=== PATIENT | male | born 1985 | race African-American/Black ===

== ENCOUNTER 2020-02-26 10:13 | Emergency (ER) | payer MEDICAID, SELFPAY ==
[2020-02-26 10:20] VITALS: BP 120/69; PULSE 71; RESP 18; TEMP 36.9; O2SAT 100
--- NOTE | 2020-02-26 10:45 | ED.GENADULT ---
HPI - General Adult General Chief complaint: Unspecified Stated complaint: lip bumps Time Seen by Provider: 02/26/20 10:22 Source: patient Mode of arrival: ambulatory Limitations: no limitations History of Present Illness HPI narrative: This is a 34 year old male that presents to the ER for rash on his lips present for the last 2 days. Reports he has been using Aquaphor to keep his lips moisturized. Is unsure if this is possibly causing a reaction. Reports the rash is not painful or itchy. Denies fever. Related Data Home Medications Medication Instructions Recorded Confirmed No Home Medications 02/26/20 02/26/20 Allergies Allergy/AdvReac Type Severity Reaction Status Date / Time No Known Allergies Allergy Verified 02/26/20 10:22 Review of Systems Review of Systems: Narrative: CONSTITUTIONAL: Denies fever SKIN: Reports rash. Denies itching. All systems reviewed & are unremarkable except as noted in HPI and below PMFSH Past Medical History Medical History (Updated 02/26/20 @ 10:49 by Liudmila Mata PA-C) No active medical problems Social History Social History (Updated 02/26/20 @ 10:46 by Liudmila Mata PA-C) Smoking status: Never smoker Gender identity (if verbalized by the patient): Male Exam Narrative: Exam Narrative: GENERAL: Well-appearing, well-nourished, and in no acute distress. HEAD: Normocephalic, atraumatic. EYES: EOMI. EXTREMITIES: Normal range of motion. No edema. SKIN: Warm, dry. Tiny white papules present on the edge of the upper and lower lip NEURO: No focal deficits. Alert and oriented x3. PSYCH: Normal mood and affect Course Vital Signs Vital signs: Vital Signs Temperature 98.4 F 02/26/20 10:20 Pulse Rate 71 02/26/20 10:20 Respiratory Rate 18 02/26/20 10:20 Blood Pressure 120/69 02/26/20 10:20 Pulse Oximetry 100 02/26/20 10:20 Temperature 98.4 F 02/26/20 10:20 Pulse Rate 71 02/26/20 10:20 Respiratory Rate 18 02/26/20 10:20 Blood Pressure 120/69 02/26/20 10:20 Pulse Oximetry 100 02/26/20 10:20 Medical Decision Making MDM Narrative Medical decision making narrative: Patient presents emergency department for rash noted to his lips for the last 2 days. Rash is very mild in nature. It is not painful or itchy. Does report recently using Aquaphor. Unsure if this is may be causing a very mild contact dermatitis. Advised stopping this medication and starting just plain Vaseline. Patient was encouraged to follow-up with a farm equipment mechanic if his rash persists Vital Signs Vital Signs: Vital Signs Temperature 98.4 F 02/26/20 10:20 Pulse Rate 71 02/26/20 10:20 Respiratory Rate 18 02/26/20 10:20 Blood Pressure 120/69 02/26/20 10:20 Pulse Oximetry 100 02/26/20 10:20 Temperature 98.4 F 02/26/20 10:20 Pulse Rate 71 02/26/20 10:20 Respiratory Rate 18 02/26/20 10:20 Blood Pressure 120/69 02/26/20 10:20 Pulse Oximetry 100 02/26/20 10:20 Critical Care Time Critical Care Time Critical Care Time: No Discharge Plan Discharge Clinical Impression: Rash and nonspecific skin eruption Patient Disposition: Home, Self-Care Condition: Stable Instructions: Acute Rash (ED) Additional Instructions: Return to the emergency department if you experience fever, abnormal drainage from your wounds, worsening of rash, or any other symptoms that are concerning to you Stop Aquaphor. Start using just plain Vaseline on your lips Follow-up with a farm equipment mechanic if your rash persists. Dr. Cassie Patino, [facility] Prescriptions: No Action No Home Medications RF: 0 Follow-up/Referrals: PHYSICIAN,DISTRIBUTION WAREHOUSE MANAGER [Primary Care Provider] -
[2020-02-26 11:05] VITALS: PULSE 62; RESP 15
== END 2020-02-26 11:05 | disposition home or self-care (01) ==
PROVIDERS: Emergency Provider Emergency Medicine
DX: R21 Rash and other nonspecific skin eruption (principal)
CPT/HCPCS: 99281

== ENCOUNTER 2024-12-03 07:32 | Emergency (ER) | payer OTHER, SELFPAY ==
[2024-12-03 07:37] VITALS: BP 119/84; PULSE 106; RESP 13; TEMP 36.9; O2SAT 97
--- NOTE | 2024-12-03 07:40 | ED_ITS ---
HPI - Skin/Abscess/Foreign Bdy General Chief complaint: Skin/Abscess/Foreign Body Stated complaint: ?spider bite Time Seen by Provider: 12/03/24 07:36 History of Present Illness HPI narrative: About 6 days ago patient noticed a painful bump on his right abdomen, had gotten swollen and painful and itchy, then a few days ago, noticed painful swollen bumps on the right groin, than left. No drainage, no penile discharge or new partners or concern for STDs. Related Data Allergies Allergy/AdvReac Type Severity Reaction Status Date / Time No Known Allergies Allergy Verified 02/26/20 10:22 Review of Systems Review of Systems: All systems reviewed & are unremarkable except as noted in HPI and below PMFSH Past Medical History Medical History (Updated 12/03/24 @ 07:40 by Nessa Ponce MD) No active medical problems Social History Social History (Updated 02/26/20 @ 10:46 by Liudmila Mata PA-C) Smoking status: Never smoker Gender identity (if verbalized by the patient): Male Exam Narrative: EXAMINATION OF ORGAN SYSTEMS/BODY AREAS: Constitutional: Vital signs per nursing GENERAL:[No acute distress, non-toxic appearing.] HEAD: Normal with no signs of head trauma. EYES: EOMI, conjunctiva normal ENT: Hearing grossly intact LUNGS: Nonlabored breathing. HEART: [Regular rate and rhythm] ABD: [Soft], [nontender to palpation] EXT: Normal range of motion SKIN: Small slightly indurated bump to R abd trunk; an area of induration to R groin, and 2 small painful bumps to L groin NEURO: [Alert and oriented x 3. No gross focal sensory or strength deficits.] PSYCH: Normal affect Course Vital Signs Vital signs: Vital Signs Temperature 98.4 F 12/03/24 07:37 Pulse Rate 106 H 12/03/24 07:37 Respiratory Rate 13 12/03/24 07:37 Blood Pressure 119/84 12/03/24 07:37 Pulse Oximetry 97 12/03/24 07:37 Oxygen Delivery Room Air 12/03/24 07:37 Temperature 98.4 F 12/03/24 07:37 Pulse Rate 106 H 12/03/24 07:37 Respiratory Rate 13 12/03/24 07:37 Blood Pressure 119/84 12/03/24 07:37 Pulse Oximetry 97 12/03/24 07:37 Oxygen Delivery Room Air 12/03/24 07:37 MDM - Skin/Abscess/Foreign Bdy MDM Narrative Medical decision making narrative: 38-year-old male presenting with multiple painful bumps on his body, he is concerned for possible spider bite. On my evaluation, there are several areas of induration, and several around the groin, I did express my and concern for possibility of this being STD, however patient denies any concern or risk factors. I will put him on antibiotics with MRSA coverage, have follow-up with his PCP in the good for days for recheck. Discharge Plan Discharge Clinical Impression: Cellulitis Patient Disposition: Home Condition: Stable Instructions: Antibiotic Form, Cellulitis (ED) Additional Instructions: Please see the medications as prescribed, follow up with your primary care doctor in the next 3-4 days to make sure it is improving. If you start noticing it is getting worse, or if you develop fevers or chills or anything else concerning, please return to the emergency room. Patient Language: Serbian Prescriptions: New doxycycline hyclate 100 mg capsule 100 mg PO Q12H 7 Days Qty: 14 0RF Follow-up/Referrals: PHYSICIAN NOT ON STAFF,NONSTAFF [Primary Care Provider]
[2024-12-03] MEDS: DOXYCYCLINE HYCLATE 100 MG TABLET PO (07:45)
--- OUTSIDE RECORDS SUMMARY | 2024-12-03 07:56 | XMS_ITS | Data Portability ---
Author Organization [place] [facility] [employer], Main Office Address [address] [place] [address] Assessment No assessment recorded. Plan of Treatment Reminders Order Date Submit Date Provider Last Modified By Organization Details Last Modified Time Details Appointments None recorded. Lab urinalysis , dipstick 2022 023 [email or web address] [facility], [address] [facility], [place], [address], 15:37:35 PSA, total, serum or plasma 2022 023 [facility] ([facility]), [address] [place], [address], 23:46:48 Referral None recorded. Procedures None recorded. Surgeries None recorded. Imaging None recorded. Medication Orders None recorded. Patient TargetsNo targets recorded. Patient InstructionsNo instructions recorded. Reason for Referral None Reported. Results Created Date Observation Date Name Description Value Unit Range Abnormal Flag Note LastModifiedBy Organization Detail LastModifiedTime 08/27/1908/26/2022 urina lysis , dipst ick Leukocytes (reference range: negative shellie/ l) Negati ve Not Available [facility] [address], [place], [address], 08/26/2022 15:01:53 08/27/1908/26/2022 urina lysis , dipst ick Nitrite (reference rage: negative mg/dl) negati ve Not Available [facility] [address] , [place], [address], 08/26/2022 15:01:53 08/27/19 23 08/26/2022 urina lysis , dipst ick Urobilinogen (reference range: 0.2-1 mg/dl) 0.2 Not Available [facility] [address], [place], [address], 08/26/2022 15:01:53 08/27/19 23 08/26/2022 urina lysis , dipst ick Protein (reference range: negative mg/dl) Negati ve Not Available [facility] [address], [place], [address], 08/26/2022 15:01:53 08/27/19 23 08/26/2022 urina lysis , dipst ick pH (reference range: 5-7) 5.5 Not Available [facility] [address], [place], [address], 08/26/2022 15:01:53 08/27/19 23 08/26/2022 urina lysis , dipst ick Blood (reference range: negative Robert/ l) Non-He molyze d: Trace Not Available [facility] [address], [place], [address], 08/26/2022 15:01:53 08/27/19 23 08/26/2022 urina lysis , dipst ick Specific [place] (reference range: 1.005-1.030) 1.025 Not Available [facility] [address], [place], [address], 08/26/2022 15:01:53 08/27/19 23 08/26/2022 urina lysis , dipst ick Ketone (reference range: negative mg/dl) Small Not Available [facility] [address], [place], [address], 08/26/2022 15:01:53 08/27/19 23 08/26/2022 urina lysis , dipst ick Bilirubin (reference range: negative mg/dl) Negati ve Not Available [facility] [address], [place], [address], 08/26/2022 15:01:53 08/27/19 23 08/26/2022 urina lysis , dipst ick Glucose (reference range: negative mg/dl) Negati ve Not Available [facility] [address], [place], [address], 08/26/2022 15:01:53 08/27/19 23 08/26/2022 urina lysis , dipst ick Appearance Clear Not Available [facility] [address], [place], [address], 08/26/2022 15:01:53 08/27/19 23 08/26/2022 urina lysis , dipst ick Color Yellow Not Available [facility] [address], [place], [address], 08/26/2022 15:01:53 Result Notes None recorded. Problems Name Problem SNOMED Code Status Onset Date Resolution Date Notes Provider Name and Address Organization Details Recorded Time Dysuria 59414590 Active 2022 Candida dee, Harri 3 15:31:52 Benign prostatic hyperplasia with outflow obstruction 708681479 Active 2022 Zheng De La Cruz MD [address], [address], [place], [address] , Harri 3 15:37:09 Problem Notes None recorded. Medical Equipment None Reported. Allergies No known drug allergies Medications Name Sig Start Date Stop Date Status Note LastModified by Organization Details LastModified Time valacyclovir 1 gram tablet 1 TABLET DAILY active Not Available Not Available No t Available hydrocortisone 2.5 % topical cream with perineal applicator APPLY TO AFFECTED AREA TWICE A DAY active Not Available Not Available No t Available tamsulosin 0.4 mg capsule TAKE 1 CAPSULE BY MOUTH EVERY DAY AT NIGHT active Not Available Not Available No t Available oxybutynin chloride ER 5 mg tablet,extende d release 24 hr TAKE 1 TABLET (5 MG TOTAL) BY MOUTH DAILY. active Not Available Not Available No t Available Vitals Date Recorded Heart rate Body temperature Body mass index (BMI) Body weight Oxygen saturation Oxygen saturation in Arterial blood by Pulse oximetry Systolic And Diastolic Provider Name and Address Organization Details Last Updated DateTime 3 64 /min 98.6 [degF] 21.3 kg/m2 54875.1 9 g 99 % 99 % 131/72 mm[Hg] Miranda Alcantara MA Harri 3 15:06:54 Date Recorded Body height Provider Name an d Address Organization Details Last Updated DateTime 08/26/2022 167.64 cm ISHA Holden Harri 08/26/2022 14:58:22 Social History Question Answer Notes LastModified by P2P-Next Details LastModified Time Tobacco Smoking Status Never Smoker ISHA Holden [facility] Harri 08/26/2022 14:59:48 What Is Your Level Of Caffeine Consumption? None [email or web address] Information not available 08/26/2022 What Was The Date Of Your Most Recent Tobacco Screening? 08/26/2022 Information not available 08/26/2022 Have You Ever Been Counseled For Unhealthy Alcohol Use? No Information not available 08/26/2022 Has Tobacco Cessation Counseling Been Provided? No [email or web address] Information not available 08/26/2022 Sex: Unknown Functional Status Question Answer Note LastModified by Organizat ion Details LastModified Time Do you use any illicit or recreational drugs? No [email or web address] Information not available 08/26/2022 What is your level of alcohol consumption? Occasional [email or web address] Information not available 08/26/2022 Mental Status None recorded. Family History Relationship Description Onset Age of this Age Resolved Age Notes LastModified by Organization Details LastModified Time Maternal Uncle Diabetes mellitus [email or web address] Not available 2022 14:58:49 Father Malignant neoplasm of pancreas [email or web address] Not available 2022 14:59:13 Medical History No medical history recorded. Past Encounters Encounter ID Performer Location Encounter Start Date Encounter Closed Date Diagnosis/Indication Diagnosis SNOMED-CT Code Diagnosis ICD10 Code Diagnosis IMO Codes Diagnosis Note [id number] Zheng De La Cruz MD [facility] [address] [facility] [address] [place] [address] 08/26/2022 14:34:55 08/26/2022 15:34:21 Benign prostatic hyperplasia with outflow obstruction 476193537 N40.1 Helped by flomax, no strictures . discussed procedures to open prostate, he is not interested , suggeste pelvic floor exercises. Might be good canidate for stent when they come out. Recheck psa. Health Concerns Section Related Observation LastModified by Organization Detai ls LastModified Time None Recorded Concern Status LastModified by Organization Details LastModified Time None Recorded Advance Directives Directive None Recorded Payers Insurance Date Sequence Insurance Name Policy Number Policy Navarrete Covered Member ID Navarrete Member ID Guarantor Name 12/16/2022 1 [employer] BETTER HEALTH OF [facility] ON OR AFTER 01/10/2020 (MEDICAID REPLACEMENT - HMO) Beau Gregg [id number] Beau Gregg Notes Date Note Type Note Provider Name and Address Organization Details Recorded Time 08/26/2022 text/html BPH (benign prostatic hyperplasia)Report ed by PatientPt presents with over one year of obstructive and irritative symptoms. He was evaluated with cysto which showed small open prostate with high bladder neck. He was given flomax which helps and he can tell when he misses a dose. He has frequency, waits to start, stream is start and stop, no dyruia or hematuria. No hx of utis or stones, no caffeine. He has retrograde ejaculation which doesnt bother him. When he drinks etoh has to go more often. PSA was 2.14 in 04/30. No family hx of prostate cancer. He was offered ditropan but didnt want to take it. Zheng De La Cruz MD [address], [address], [place], [address], [facility] 08/26/2022 15:37:38
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
== END 2024-12-03 08:00 | disposition home or self-care (01) ==
LOC: ANHED 07:52
PROVIDERS: Emergency Provider Emergency Medicine
DX: L03.314 Cellulitis of groin (principal); L03.311 Cellulitis of abdominal wall
CPT/HCPCS: 99283; A9270